=== PATIENT | male | born 2000 | race Two or more races ===

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

== ENCOUNTER 2021-10-07 22:11 | Emergency (ER) | payer SELFPAY ==
[~2021-10-07] VITALS: Ht 177.8 cm; Wt 82.0 kg
[~2021-10-07 22:11] MED LIST: DOXY-96 PO
[2021-10-07 22:15] VITALS: BP 138/82
[2021-10-07] MEDS ORDERED: ACETAMINOPHEN 500 MG TABLET PO ONE (22:30)
--- NOTE | 2021-10-07 22:57 | RAD ---
Exam: CT head INDICATION: Occipital head injury TECHNIQUE: Sequential axial images through the head were obtained without the administration of IV co ntrast. Exposure: One or more of the following in the visualized dose reduction techniques were utilized for this examination: 1. Automated exposure control 2. Adjustment of the MA and/or KV according to patient size 3. Use of iterative of reconstructive technique Comparisons: None FINDINGS: No focal parenchymal lesion or hemorrhage is identified. There is no midline shift or sulcal effaceme nt. No acute vascular territory infarction is identified. Lam-white distinction is preserved. The ventricular system is within normal limits without compression hydrocephalus. The basal cisterns are well maintained. The visualized portions of the paranasal sinuses and mastoid air cells are well-pneumatized. No acute fractures. IMPRESSION: No acute intracranial abnormality. Electronically signed by: Malka Jimenez MD (10/07/2021 10:54 PM) [facility]
--- NOTE | 2021-10-07 23:31 | PHYS DOC ---
Past Medical History Past Medical History: No Pertinent History Past Surgical History: No Surgical History Smoking Status: Current Every Day Smoker Alcohol Use: Heavy Drug Use: Other Adult General Chief Complaint Chief Complaint: LACERATION/AVULSION HPI HPI The patient is a 20-year-old male who is otherwise healthy. He presents for evaluation of an occipital head injury sustained prior to arrival. Patient evidently fell from a standing height and struck the back of his head on some drywall. The drywall caved in and the head of a screw and a stud in the wall struck the back of his head, causing a small laceration. Friend witnessed the episode and believes there was a momentary loss of consciousness but afterwards patient was awake and alert. Patient has been drinking alcohol today and is intoxicated alert and oriented x4, moving all extremities and in no acute distress. He denies pain anywhere and there are no signs of trauma aside from a small laceration to the back of his head. He is ambulatory with a narrow, steady, non-ataxic gait here in the emergency department. Review of Systems Review of Systems A 12 point review of systems was completed and was negative except where noted in HPI above. Current Medications Current Medications Current Medications Medications (Trade) Dose Ordered Sig/Tsering Start Time Stop Time Status Last Admin Dose Admin Acetaminophen (Tylenol) 1,000 mg 1X ONCE 10/07/21 22:30 10/07/21 22:32 DC Allergies Allergies Allergies Coded Allergies Type Severity Reaction Last Updated Verified No Known Drug Allergies 01/05/15 No Physical Exam Physical Exam 20-year-old male appearing nontoxic and in no acute distress. Head is normocephalic and with a superficial 1 cm linear well approximated hemostatic laceration to the occiput. Otherwise, no signs of trauma to the face or scalp or head or neck. Neck is supple and nontender. Oropharynx is moist. Lungs are clear to auscultation at all stations. There is a normal S1 and S2 without rubs or gallops and capillary refill is appropriate, less than 2 seconds globally. Abdomen is soft, nontender and nondistended. Skin is warm and dry without cyanosis, clubbing or edema. Psychiatrically, the patient demonstrates appropriate mood and affect and is alert. Neurologically, patient moves all extremities equally, is alert and oriented x4 no lateralizing deficits are seen. EKG EKG [] Radiology/Procedures Radiology/Procedures Indication: Scalp laceration Procedure: Area was copiously washed and disinfected. The laceration was repaired with 4 scalp luan. Total repaired wound length: 1.5cm The patient tolerated the procedure well. Complications: none. Exam: CT head INDICATION: Occipital head injury TECHNIQUE: Sequential axial images through the head were obtained without the administration of IV contrast. Exposure: One or more of the following in the visualized dose reduction techniques were utilized for this examination: 1. Automated exposure control 2. Adjustment of the MA and/or KV according to patient size 3. Use of iterative of reconstructive technique Comparisons: None FINDINGS: No focal parenchymal lesion or hemorrhage is identified. There is no midline shift or sulcal effacement. No acute vascular territory infarction is identified. Lam-white distinction is preserved. The ventricular system is within normal limits without compression hydrocephalus. The basal cisterns are well maintained. The visualized portions of the paranasal sinuses and mastoid air cells are well- pneumatized. No acute fractures. IMPRESSION: No acute intracranial abnormality. Electronically signed by: Malka Crzu MD (10/07/2021 10:54 PM) [facility] DICTATED and SIGNED BY: MALKA CRUZ MD DATE: 10/07/212251 Course & Med Decision Making Course & Med Decision Making Laceration repaired without complication as per procedure note. Patient tolerated well. Alert and oriented x4, ambulatory with a narrow, steady gait and not clinically intoxicated at this time. Stable for discharge home with his friend who will drive him home. [place] out in 10 days. Return if worse or if other new symptoms develop. All questions are answered. Dragon Disclaimer Dragon Disclaimer This electronic medical record was generated, in whole or in part, using a voice recognition dictation system. Departure Departure Impression: Primary Impression: Laceration of head Additional Impression: Acute alcohol intoxication Disposition: 01 HOME / SELF CARE / HOMELESS Condition: STABLE Patient Instructions: Alcohol Intoxication, Laceration Care, Adult Additional Instructions: Follow-up with your primary doctor, go to urgent care or return to the emergency room in 10 days to have your scalp luan taken out. You may use ibuprofen and/or Tylenol as needed for any discomfort. Do not drink alcohol to excess to avoid serious risks to your health. Return to the emergency department right away for worsening symptoms of any kind or with any other new symptoms of concern. Problem Qualifiers Primary Impression: Laceration of head Encounter type: initial encounter Location of open wound of head: other part of head Foreign body presence: without foreign body Qualified Codes: S01.81XA - Laceration without foreign body of other part of head, initial encounter Additional Impression: Acute alcohol intoxication Complication of substance-induced condition: uncomplicated Qualified Codes: F10.920 - Alcohol use, unspecified with intoxication, uncomplicated ELIEL RUIZ MD Oct 07, 2021 23:31
== END 2021-10-07 23:35 | disposition home or self-care (01) ==
LOC: ER 22:11
DX: S01.81XA Laceration without foreign body of other part of head, initial encounter (principal); F10.129 Alcohol abuse with intoxication, unspecified; Y90.9 Presence of alcohol in blood, level not specified; F17.200 Nicotine dependence, unspecified, uncomplicated; W18.09XA Striking against other object with subsequent fall, initial encounter; Y93.89 Activity, other specified; Y92.89 Other specified places as the place of occurrence of the external cause; Y99.8 Other external cause status
CPT/HCPCS: 12001; 70450; 99284-25

== ENCOUNTER 2021-10-19 15:23 | Emergency (ER) | payer SELFPAY ==
[~2021-10-19] VITALS: Ht 177.8 cm; Wt 82.2 kg
[2021-10-19 16:50] VITALS: BP 110/70
--- NOTE | 2021-10-19 17:02 | PHYS DOC ---
Past Medical History Past Medical History: No Pertinent History Past Surgical History: No Surgical History Smoking Status: Current Every Day Smoker Alcohol Use: Heavy Drug Use: Other General Adult EDM: Chief Complaint: SUTURE/STAPLE REMOVAL HPI: HPI: Patient is a 20 year old male who presents with October 07 see got a laceration on his head and required 3 luan. He is here today to have them removed. He denies fever, redness, drainage, pain or any other signs of infection. Review of Systems: Review of Systems: Constitutional: Denies fever or chills. [] Eyes: Denies change in visual acuity. [] HENT: Denies nasal congestion or sore throat. [] Respiratory: Denies cough or shortness of breath. [] Cardiovascular: Denies chest pain or edema. [] GI: Denies abdominal pain, nausea, vomiting, bloody stools or diarrhea. [] : Denies dysuria. [] Musculoskeletal: Denies back pain or joint pain. [] Integument: Denies rash. + 3 luan in right back scalp [] Neurologic: Denies headache, focal weakness or sensory changes. [] Endocrine: Denies polyuria or polydipsia. [] Lymphatic: Denies swollen glands. [] Psychiatric: Denies depression or anxiety. [] Heart Score: C/O Chest Pain: No Allergies: Allergies: Allergies Coded Allergies Type Severity Reaction Last Updated Verified No Known Drug Allergies 10/19/21 No Physical Exam: PE: Constitutional: Well developed, well nourished, no acute distress, non-toxic appearance. [] HENT: Normocephalic, atraumatic, bilateral external ears normal, oropharynx moist, no oral exudates, nose normal. [] Eyes: PERRLA, EOMI, conjunctiva normal, no discharge. [] Neck: Normal range of motion, no tenderness, supple, no stridor. [] Cardiovascular:Heart rate regular rhythm, no murmur [] Lungs & Thorax: Bilateral breath sounds clear to auscultation [] Abdomen: Bowel sounds normal, soft, no tenderness, no masses, no pulsatile masses. [] Skin: Warm, dry, no erythema, no rash. Well healed laceration with [address] [] Back: No tenderness, no CVA tenderness. [] Extremities: No tenderness, no cyanosis, no clubbing, ROM intact, no edema. [] Neurologic: Alert and oriented X 3, normal motor function, normal sensory func tion, no focal deficits noted. [] Psychologic: Affect normal, judgement normal, mood normal. [] EKG: EKG: [] Radiology/Procedures: Radiology/Procedures: [] Course & Med Decision Making: Course & Med Decision Making Pertinent Labs and Imaging studies reviewed. (See chart for details) See HPI. Alert and oriented x4. Ambulatory steady gait. Speaks in full clear sentences. Laceration is healed with edges approximated. No redness, swelling, drainage or other signs of infection. 3 luan are removed. Patient dwayne erated well. [] Dragon Disclaimer: Dragon Disclaimer: This electronic medical record was generated, in whole or in part, using a voice recognition dictation system. Departure Departure Impression: Primary Impression: Visit for suture removal Disposition: HOME / SELF CARE / HOMELESS Condition: STABLE Referrals: NO PCP (PCP) Patient Instructions: Suture Removal Additional Instructions: Follow-up with primary care provider if needed. JAYDEN AGUILERA APRN Oct 19, 2021 17:02
== END 2021-10-19 17:07 | disposition home or self-care (01) ==
LOC: ER 15:23
DX: S01.91XD Laceration without foreign body of unspecified part of head, subsequent encounter (principal); F17.200 Nicotine dependence, unspecified, uncomplicated; F10.20 Alcohol dependence, uncomplicated; Y90.9 Presence of alcohol in blood, level not specified; Y28.8XXD Contact with other sharp object, undetermined intent, subsequent encounter
CPT/HCPCS: 99281